=== PATIENT | female | born 2000 | race Caucasian/White ===

== ENCOUNTER 2019-02-14 04:14 | Emergency (ER) | payer MEDICAID ==
[~2019-02-14] VITALS: Ht 154.9 cm; Wt 55.6 kg
[2019-02-14 04:20] VITALS: Ht 154.9 cm; Wt 55.6 kg
[2019-02-14 05:57] VITALS: BP 130/85
== END 2019-02-14 05:57 | disposition home or self-care (01) ==
LOC: ED 04:14
DX: S63.601A Unspecified sprain of right thumb, initial encounter (principal); S60.221A Contusion of right hand, initial encounter; W22.8XXA Striking against or struck by other objects, initial encounter; Y93.89 Activity, other specified; Y92.89 Other specified places as the place of occurrence of the external cause; Y99.8 Other external cause status
CPT/HCPCS: J1885; Q0092

== ENCOUNTER 2019-05-31 15:09 | Emergency (ER) | payer MEDICAID ==
[~2019-05-31] VITALS: Ht 154.9 cm; Wt 61.0 kg
[2019-05-31 15:10] VITALS: Ht 154.9 cm; Wt 61.0 kg
[2019-05-31 17:18] LABS: BASOPHIL % 0.3 % (0-2); PLATELET COUNT 223 x10^3mcL (130-400); RED CELL DISTRIBUTION WIDTH 12.9 % (11.5-14.5)
[2019-05-31 17:23] LABS: CALCIUM 8.9 mg/dL (8.5-10.1); CARBON DIOXIDE 27.9 mmol/L (21-32); CHLORIDE SERUM 104 mmol/L (98-107); CREATININE SERUM 0.7 mg/dL (0.6-1.0); GFR1 > 60 mL/min; GLUCOSE SERUM 74 mg/dL (74-106); POTASSIUM SERUM 3.8 mmol/L (3.5-5.1); SODIUM SERUM 138 mmol/L (136-145)
[2019-05-31 17:28] LABS: ALBUMIN 3.9 g/dL (3.4-5.0); ALKALINE PHOSPHATASE 52 U/L (46-116); ALT/SGPT 51 U/L (14-59); AST/SGOT 21 U/L (15-37); BILIRUBIN TOTAL 0.9 mg/dL (0.20-1.00); TOTAL PROTEIN, SERUM 7.4 g/dL (6.4-8.2)
[2019-05-31 17:38] LABS: microscopic required? YES; urine erythrocyte NEGATIVE (NEGATIVE)
[2019-05-31 21:09] VITALS: BP 122/74
== END 2019-05-31 21:09 | disposition home or self-care (01) ==
LOC: ED 15:09
PROVIDERS: Emergency Medicine
DX: O23.41 Unspecified infection of urinary tract in pregnancy, first trimester (principal); Z3A.01 Less than 8 weeks gestation of pregnancy
CPT/HCPCS: 36415